=== PATIENT | male | born 1990 | race Asian ===

== ENCOUNTER 2022-05-05 09:56 | Emergency (ER) | payer OTHER ==
[~2022-05-05] VITALS: Ht 162.6 cm; Wt 86.6 kg
[2022-05-05 10:05] VITALS: BP 125/98
--- NOTE | 2022-05-05 10:33 | NUR ---
C/O COUGH, HEADACHE X2 WEEKS, TOOK ALLIEVE TODAY WITH MINIMAL RELIEF NKA PMH: DENIES
--- NOTE | 2022-05-05 11:45 | NUR ---
RETURN FROM CT
[2022-05-05] MEDS ORDERED: NAPR-1847 PO (12:33)
[2022-05-05] MEDS ORDERED: ALBU0.0912 IH (12:57)
[2022-05-05 13:10] VITALS: BP 125/98
--- NOTE | 2022-05-05 13:10 | NUR ---
Patient discharged with v/s stable. Written and verbal after care instructions given and explained. Patient alert, oriented and verbalized understanding of instructions. Ambulatory with steady gait. All questions addressed prior to discharge. ID band removed. Patient advised to follow up with PMD. Rx of naproxen (sent) given. Patient educated on indication of medication including possible reaction and side effects. Opportunity to ask questions provided and answered. work note given
== END 2022-05-05 13:10 | disposition home or self-care (01) ==
LOC: MED 09:56
DX: J10.1 Influenza due to other identified influenza virus with other respiratory manifestations (principal); Z20.822 Contact with and (suspected) exposure to COVID-19; Z79.899 Other long term (current) drug therapy; Z79.1 Long term (current) use of non-steroidal anti-inflammatories (NSAID)
CPT/HCPCS: 70450; 99284